=== PATIENT | male | born 1930 | race Caucasian/White ===

== ENCOUNTER 2017-01-15 18:58 | Inpatient (IN) | payer MEDICARE, BC ==
[~2017-01-15] VITALS: Ht 175.3 cm; Wt 80.0 kg
--- NOTE | 2017-01-15 19:00 | NUR ---
PATIENT TO ROOM 10 VIA EMS STRETCHER. UNDRESSED INTO A GOWN. PLACED ON MONITOR. TRIAGE COMPLETED AT BEDSIDE. PATIENT PLACED SUPINE FOR LOW BP. IVF INFUSING FROM EMS.
[2017-01-15] MEDS ORDERED: VITAMIN B-12500 MCG PO (19:29)
[2017-01-15] MEDS ORDERED: PANTOPRAZOLE SO40 MG PO (19:30)
[2017-01-15] MEDS ORDERED: RED YEAST RICE300 MG PO (19:30)
[2017-01-15] MEDS ORDERED: PRESERVISION PO (19:30)
[2017-01-15] MEDS ORDERED: LISINOP/HCTZ1 TA2 PO (19:31)
[2017-01-15] MEDS ORDERED: PRAVASTATIN SOD40 MG PO (19:31)
[2017-01-15 19:35] LABS: HEMOGLOBIN 10.7 g/dl (14.0-18.0); IMMATURE GRANULOCYTES 0.7 % (0.0-1.0); MEAN CELL VOLUME 79.3 fL CALC (80.0-100.0); MEAN CORPUSCULAR HGB 25.7 pG CALC (26.0-32.0); MEAN CORPUSCULAR HGB CONC 32.4 g/L CALC (32.0-36.0); NEUT# 10.35 thou/uL (1.82-7.42); RED BLOOD COUNT 4.16 mill/uL (4.70-6.10); RED CELL DISTRI WIDTH 17.2 % (11.5-15.5)
[2017-01-15] MEDS ORDERED: JANUVIA25 MG PO (19:49)
--- NOTE | 2017-01-15 19:50 | NUR ---
SECOND LITER IVF HUNG. WILL CONTINUE TO MONITOR BLOOD PRESSURE.
[2017-01-15 19:53] LABS: INTERNATIONAL NORMALIZED RATIO 1.2 RATIO (0.7-1.3); PROTHROMBIN TIME 12.7 SECONDS (9.0-12.5)
[2017-01-15 20:01] LABS: ALBUMIN 3.6 g/dL (3.2-5.0); ALKALINE PHOSPHATASE 271 u/l (38-126); ANION GAP 18 (6-22 (CALC)); BILIRUBIN, TOTAL 0.5 mg/dL (0.0-1.4); BUN 71 mg/dL (8-23); BUN/CREATININE RATIO 27 (12-20 (CALC)); CARBON DIOXIDE 26 mmol/l (22-30); CHLORIDE 98 mmol/l (95-108); CREATININE 2.7 mg/dL (0.7-1.3); GFR 23 ML/MIN (>=60 (CALC)); GFR FOR AFR.AMER. 27 ML/MIN (>=60 (CALC)); GLUCOSE 149 mg/dL (82-115); POTASSIUM 3.5 mmol/l (3.5-5.1); SGOT/AST 49 u/l (19-48); SGPT/ALT 55 u/l (11-66); SODIUM 138 mmol/l (137-146); TOTAL PROTEIN 6.6 g/dL (6.3-8.2)
[2017-01-15 20:03] LABS: CALCIUM 13.4 mg/dL (8.4-10.2)
--- NOTE | 2017-01-15 20:05 | NUR ---
VISITORS ARRIVE AT BEDSIDE.
[2017-01-15 20:11] LABS: MYOGLOBIN 286 ng/mL (0 - 121)
--- NOTE | 2017-01-15 20:25 | NUR ---
THIRD LITER IVF HUNG. PATIENT GIVEN URINAL AND ENCOURAGED TO VOID FOR URINE SAMPLE.
--- NOTE | 2017-01-15 21:25 | NUR ---
PATIENT TO RADIOLOGY VIA STRETCHER.
--- NOTE | 2017-01-15 22:00 | NUR ---
PATIENT RETURNS TO DEPARTMENT. AWAITING RESULTS AND PLAN OF CARE. BP HAS IMPROVED AFTER ALL IVF.
[2017-01-15 22:26] LABS: URINE BILIRUBIN - DIPSTICK NEGATIVE (NEGATIVE); URINE BLOOD DIPSTICK NEGATIVE (NEGATIVE); URINE CLARITY CLEAR; URINE COLOR YELLOW; URINE GLUCOSE - DIPSTICK NEGATIVE (NEGATIVE); URINE KETONE TRACE mg/dL (NEGATIVE); URINE LEUK ESTERASE NEGATIVE (NEGATIVE); URINE NITRITE - DIPSTICK NEGATIVE (Negative); URINE PH 5.5 (4.5-8.0); URINE PROTEIN - DIPSTICK NEGATIVE (NEG-TRACE); URINE UROBILINOGEN - DIPSTICK 0.2 E.U./dL (0.2)
--- NOTE | 2017-01-15 23:00 | NUR ---
PATIENT RESTING QUIETLY ON STRETCHER. DENIES ANY COMPLAINTS AT PRESENT TIME. CONTINUE AWAITING PLAN OF CARE.
[2017-01-16] VITALS (26 sets, daily range): BP systolic 81–114; BP diastolic 46–72
--- NOTE | 2017-01-16 | NUR ---
PATIENT AWARE OF PLANS TO ADMIT. VISITORS ARE GOING HOME. AWAITING ORDERS AND ROOM ASSIGNMENT.
--- NOTE | 2017-01-16 00:40 | NUR ---
REPORT GIVEN TO TRAY. PATIENT READIED FOR TRANSPORT TO FLOOR.
--- NOTE | 2017-01-16 01:15 | NUR ---
male pt received to ICU bed 3 via stretcher accompanied by Giuseppe Barreto RN in stable condition; ambulatory to scale then bed with weak gait; admission assessment completed at this time; pt c/c of dizziness/ weakness/ poor appetite x 2 weeks; a&o X3; denies pain; no n/v/diaphoresis noted; resp even and unlabored; lungs clear; o2 per nc at 2L; skin color wnl; hr reg; weak pedal pulses; no edema noted; sr with pvc on monitor; bilat knee [place] hose placed; abd soft with bs present; no bm noted per short story writer; no urine to inspect at this time; pt denies urinary issues; urinal placed at bedside; #20 to lac flushed and patent; fluids to begin as per orders; plan of care/ ivf explained; pt oriented to bed and call light system; will continue to monitor closely
--- NOTE | 2017-01-16 02:00 | NUR ---
calling out for nurse; assist to side of bed to urinate; slow stream; able to void 100cc clear yellow urine; will continue to monitor
--- NOTE | 2017-01-16 04:05 | NUR ---
awake; assisted to side of bed; voiding/slow stream noted; sr/pvc on monitor; iv patent; no redness or edema noted at site; pt offers no complaints; call light within reach; will continue to monitor
--- NOTE | 2017-01-16 05:09 | NUR ---
assist to bsc to urinate; able to void 175cc; pt admits to not emptying bladder completely; no bladder distention noted; pt denies any bladder discomfort; mod urinary incont noted; pericare/gown change; will continue to monitor
--- NOTE | 2017-01-16 05:40 | NUR ---
resting with eyes closed; no distress noted; iv patent; no redness or edema noted at site; sr/pvc on monitor; o2 per nc; bed in lowest position; call light within reach
--- NOTE | 2017-01-16 06:45 | NUR ---
REPORT RECEIVED FROM ERNESTINA PICHARDO. PT UTILITY TECHNICIAN LIGHT WITH REQUEST TO USE RESTROOM. SAFELY ASSISTED TO BSC, LINENS CHANGED R/T INCONTINENCE. CALL LIGHT WITHIN REACH, INSTRUCTED PT TO CALL FOR ASSISTANCE, BEFORE GETTING BACK INTO BED AFTER FINISHED WITH BSC. PT STATES UNDERSTANDING WILL CONTINUE TO MONITOR.
--- NOTE | 2017-01-16 08:30 | NUR ---
PT OOB AND USING BSC. PT HAD SOFT BM AT THIS TIME. PERINEAL CARE PROVIDED AT THIS TIME, REDDENED AREA TO LEFT BUTTOCKS OBSERVED. PICTURE OBTAINED AND SPOT MEASURED. WILL NOTIFY .
[2017-01-16 09:12] LABS: ALBUMIN 2.9 g/dL (3.2-5.0); BILIRUBIN, TOTAL 1.5 mg/dL (0.0-1.4); CALCIUM 12.3 mg/dL (8.4-10.2); CREATININE 1.9 mg/dL (0.7-1.3); POTASSIUM 3.3 mmol/l (3.5-5.1); TOTAL PROTEIN 5.5 g/dL (6.3-8.2)
--- NOTE | 2017-01-16 12:00 | NUR ---
PT ASSISTED FROM BS CHAIR TO BSC, AND THEN SAFELY ASSISTED BACK TO BED. ONCE IN BED, CODE STATUS EVALUATED, IN THE RESPECT OF WHAT TO DO THIS ADMISSION IF PATIENT FOUND WITHOUT A PULSE OR NOT BREATHING. PT STATES "WELL OF RIGHT NOW, THIS ADMISSION, I WANT EVERYTHING DONE FOR ME, I WANT TO START AGGRESSIVE TREATMENT WHEN I FINALLY GET HOME TO [place]." PT DISPOSITION IS PLEASANT, PT IS FULLY ALERT AND ORIENTATED. WILL NOTIFY MD IF ANY FURTHER CHANGES OCCUR.
--- NOTE | 2017-01-16 14:00 | NUR ---
PT OOB TO BSC FOR ADDITIONAl BM. ASSISTED SAFELY TO BED, CALL LIGHT WITHIN REACH, WILL CONTINUE TO MONITOR.
--- NOTE | 2017-01-16 15:18 | NUR ---
NOTIFIED OF PT'S CONSECUTIVE LOW BP. 500CC FLUID BOLUS ORDERED. PT AND FAMILY INFORMED OF ADJUSTMENT TO PLAN OF CARE, PT STATES UNDERSTANDING. PT ASYMPTOMATIC AT THIS TIME. WILL CONTINUE TO MONITOR.
--- NOTE | 2017-01-16 17:18 | NUR ---
PT BP REMAINS UNDER 100 SBP. ASYMPTOMATIC, UP TO THE CHAIR, FOR DINNER. FAMILY AT WILL CONTINUE TO MONITOR.
--- NOTE | 2017-01-16 19:20 | NUR ---
pt resting in bed with eyes closed; easily aroused; offers no complaints; assessment completed at this time; pt a&o X3; denies pain; comtinues with complaints of weakness/ deny dizziness at present; no n/v noted; resp even and unlabored; lungs clear with faint wheeze in post lobes; skin color wnl; o2 per nc at 2L; hr reg; weak pedal pulses; no edema noted; bilat knee [place] hose intact; sr-sb with occ pac/pvc on monitor; abd soft with bs present; pt admits to several bm today; no urine to inspect at this time; urinal at bedside; #20 ems site patent to lac with ns infusing at 500cc/hr; rate changed as per orders; no redness or edema noted at site; firm purple area noted to left buttock/closed/no drainage; plan of care/ ivf explained; call light within reach; will continue to monitor
--- NOTE | 2017-01-16 20:03 | NUR ---
resting on left side with eyes closed; no distress noted; easily arousable; asymptomatic in regards to hypotension; sr/pvc on monitor; iv patent; call light within reach; will continue to monitor
--- NOTE | 2017-01-16 21:05 | NUR ---
awake; #20 started in rw x1 attempt; flushed and patent; iv fluids resumed; #20 ems site removed from lac with catheter tip intact; pt assisted to bsc for bm; sr/sb on monitor with pvc; no distress noted; pt offers no complaints; deny dizziness; o2 per nc; call light within reach; will continue to monitor
--- NOTE | 2017-01-16 21:25 | NUR ---
accucheck 140; hs snack provided; will continue to monitor
--- NOTE | 2017-01-16 21:56 | NUR ---
resting with eyes closed; no distress noted; iv patent; no redness or edema noted at site; sb/pvc on monitor; o2 per nc; call light within reach; will continue to monitor
--- NOTE | 2017-01-16 23:59 | NUR ---
awake; assisted to bsc; no distress noted; iv patent; no redness or edema noted at site; sr/pvc on monitor; o2 per nc; pt offers no complaints; call light within reach; will continue to monitor
[2017-01-17] VITALS (9 sets, daily range): BP systolic 86–127; BP diastolic 47–77
--- NOTE | 2017-01-17 01:45 | NUR ---
awake; assist to use urinal; generalized weakness; deny dizziness; pt states he feels a little stronger; o2 per nc; sr/sb with pvc on monitor; voiding clear dark yellow urine; sob noted with exertion; iv patent; no redness or edema noted at site; call light within reach; will continue to monitor
--- NOTE | 2017-01-17 04:02 | NUR ---
pt resting with eyes closed; no distress noted; resp even and unlabored; iv patent; no redness or edema noted at site; sr-sb with pvc on monitor; o2 per nc; call light within reach; will continue to monitor
[2017-01-17 04:41] LABS: HEMATOCRIT 29.6 % (39.0-50.0); HEMOGLOBIN 9.2 g/dl (14.0-18.0); IMMATURE GRANULOCYTES 0.6 % (0.0-1.0); MEAN CELL VOLUME 80.9 fL CALC (80.0-100.0); MEAN CORPUSCULAR HGB 25.1 pG CALC (26.0-32.0); MEAN CORPUSCULAR HGB CONC 31.1 g/L CALC (32.0-36.0); NEUT# 6.56 thou/uL (1.82-7.42); RED BLOOD COUNT 3.66 mill/uL (4.70-6.10); RED CELL DISTRI WIDTH 17.5 % (11.5-15.5)
[2017-01-17 05:01] LABS: ANION GAP 12 (6-22 (CALC)); BUN 41 mg/dL (8-23); BUN/CREATININE RATIO 33 (12-20 (CALC)); CALCIUM 11.4 mg/dL (8.4-10.2); CARBON DIOXIDE 27 mmol/l (22-30); CHLORIDE 106 mmol/l (95-108); CREATININE 1.2 mg/dL (0.7-1.3); GFR 58 ML/MIN (>=60 (CALC)); GFR FOR AFR.AMER. > 60 ML/MIN (>=60 (CALC)); GLUCOSE 171 mg/dL (82-115); SODIUM 142 mmol/l (137-146)
--- NOTE | 2017-01-17 05:51 | NUR ---
pt resting in bed with eyes closed; no distress noted; iv patent; no redness or edema noted at site; sr/pvc on monitor; bed in lowest position; call light within reach
--- NOTE | 2017-01-17 07:25 | NUR ---
PT ALERT AND ORIENTED SITTING UP IN RECLINER AT BEDSIDE, AM ASSESSMENT COMPLETED, SEE INTERVENTIONS. SKIN WARM AND DRY WITH SMALL AREA NOTED TO LEFT BUTTOCK, PT REFERS TO IT A "FISTULA" NO OPENING AND NO DRAINAGE NOTED, OTHERWISE SKIN INTACT WITH NO BREAKDOWN NOTED, ABD SOFT BS ACTIVE PT COMPLAINS OF SOME NAUSEA WITH PO INTAKE, DENIES VOMITING BUT STATES FEELING "LIKE TH FOOD JUST DOESN'T WANNA GO DOWN" DENIES TROUBLE SWALLOWING, USES URINAL WITH INTERMITTENT BOUTS OF INCONTINENCE, ASSISTNACE PROVIDED PRN, CALL WRIGHT WITHIN REACH, SAFETY MEASURES REINFORCED, WILL CONTINUE TO MONITOR.
--- NOTE | 2017-01-17 08:38 | NUR ---
PT BACK IN BED AT THIS TIME, RESTING WITH NO COMPLAINTS OFFERED, CALL WRIGHT WITHIN REACH, WILL CONTINUE TO MONITOR.
--- NOTE | 2017-01-17 10:29 | NUR ---
SPOKE WITH PT REGARDING DNR STATUS PT RESPONDS APPROPRIATELY INDICATING UNDERSTADNING OF DNR STATUS AND MEANING, PT SIGNED DNR FORM AND PLACED ON CHART ALSO INSTRUCTED PT TO MAKE SURE HE TAKES ORIGINAL WITH HIM UPON DISCHARGE, PT VERBALIZES UNDERSTANDING.
--- NOTE | 2017-01-17 11:33 | NUR ---
FAMILY AT BEDSIDE OFFERS NO NEW COMPLAINTS, PT ALTERNATES BETWEEN SITTING UP IN RECLINER AND LYING DOWN ON BED, FAMILY INTERMITTENLY AT BEDSIDE, WILL CONTINUE TO MONITOR.
--- NOTE | 2017-01-17 12:06 | NUR ---
SPOKE WIHT FAMILY MEMBERS AT PT REQUEST REGARDING PLAN OF CARE, PT CURRENLTY SITTING UP IN RECLINER AT BEDSIDE, O2 REMAINS ON AT 2L VIA NC, WITH NO DISTRESS OR SOB NOTED, WILL CONTINUE TO MONITOR.
--- NOTE | 2017-01-17 14:11 | NUR ---
CASE MGMT IN TO SPEAK WITH PT AND FAMILY REGARDING D/C.
--- NOTE | 2017-01-17 15:13 | NUR ---
PT OOB TO BSC AND BACK TO BED WITH MIN ASSIST VOIDS SMALL AMOUNTS URINE FREQUENTLY, ALL MONITORING EQUIPMETN REMOVED PT NOW MED SURG OVERFLOW NO TELE, CALL WRIGHT WITHIN REACH, WILL CONTINUE TO MONITOR.
--- NOTE | 2017-01-17 15:27 | NUR ---
PT OOB OT RECLINER AT [facility] WITH MIN ASSIST, WILL CONTINUE TO MONITOR
--- NOTE | 2017-01-17 17:30 | NUR ---
PT INCONTINENT IN BED SMALL AMOUNT ENTIRE BED LINEN CHANGE PROVIDED AND UP TO BSC WITH MIN ASSIST, BACK TO BED AFTER USING BSC AND REPOSITIONED FOR COMFORT, DAUGHTER CURRENTLY AST BEDSIDE AND SET UP ASSIST PROVIDED FOR PM MEAL.
--- NOTE | 2017-01-17 18:14 | NUR ---
PT RESTING IN BED, VISITORS AT BEDSIDE, OFFERS NO NEW COMPLAINTS, CALL KYLE BORGES, TOLERATED DIET WITHOUT INCIDENT.
--- NOTE | 2017-01-17 19:00 | NUR ---
REPORT FROM ERNESTINA EVERETT. ASSUMED PT. CARE.
--- NOTE | 2017-01-17 20:32 | NUR ---
ASSISTED PT. TO STAND AT BEDSIDE TO USE URINAL. APPROX 100 CC OF CONCENTRATED URINE OUT AT THIS TIME. C/O "SOUR STOMACH" AT THIS TIME. MD MADE AWARE AND WILL MEDICATE PER PHYSICIAN ORDERS.
--- NOTE | 2017-01-17 21:00 | NUR ---
REPORT TO RENETTA AVILEZ.
--- NOTE | 2017-01-17 21:30 | NUR ---
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
--- NOTE | 2017-01-18 01:50 | NUR ---
PT APPEARS TO BE SLEEPING AT THIS TIME;NO S/S OF DISTRESS NOTED;RESPIRATIONS EVEN AND UNLABORED;URINAL AT BEDSIDE;FALL PRECAUTIONS IN PLACE;BED IN LOWEST POSITION WITH CALL LIGHT IN REACH;WILL CONTINUE TO MONITOR
[2017-01-18 04:11] VITALS: BP 125/76
--- NOTE | 2017-01-18 04:40 | NUR ---
PT RESTING IN SEMI FOWLERS POSITION;PT AMBULATED TO BATHROOM WITH WEAK GAIT AND 1 PERSON ASSIST;PT DENIES ANY PAIN OR DISCOMFORTS;IV SITE TO RT FOREARM INFUSING WELL,SECURED WITH COBAN;02 ON @ 2 LITERS VIA NC;SAFETY PRECAUTIONS REINFORCED;PT DENIES ANY OTHER NEEDS AT THIS TIME;BED IN LOWEST POSITION WITH CALL LIGHT IN REACH;WILL CONTINUE TO MONITOR
[2017-01-18 05:25] LABS: HEMATOCRIT 29.8 % (39.0-50.0); HEMOGLOBIN 9.6 g/dl (14.0-18.0); IMMATURE GRANULOCYTES 1.2 % (0.0-1.0); MEAN CELL VOLUME 80.8 fL CALC (80.0-100.0); MEAN CORPUSCULAR HGB CONC 32.2 g/L CALC (32.0-36.0); NEUT# 6.89 thou/uL (1.82-7.42); RED BLOOD COUNT 3.69 mill/uL (4.70-6.10); RED CELL DISTRI WIDTH 17.8 % (11.5-15.5)
[2017-01-18 05:43] LABS: ANION GAP 11 (6-22 (CALC)); BUN 30 mg/dL (8-23); BUN/CREATININE RATIO 30 (12-20 (CALC)); CALCIUM 11.4 mg/dL (8.4-10.2); CARBON DIOXIDE 27 mmol/l (22-30); CHLORIDE 106 mmol/l (95-108); GFR > 60 ML/MIN (>=60 (CALC)); GFR FOR AFR.AMER. > 60 ML/MIN (>=60 (CALC)); GLUCOSE 141 mg/dL (82-115); POTASSIUM 3.2 mmol/l (3.5-5.1); SODIUM 142 mmol/l (137-146)
--- NOTE | 2017-01-18 07:20 | NUR ---
REPORT RECIEVED FROM RENETTA AVILEZ; PT SITTING UP IN CHAIR AT BEDSIDE; O2 NC IN PLACE; PT DENIES ANY NEEDS AT THIS TIME; PORFIRIO LERMA AT BEDSIDE TO ASSIST; CALL LIGHT WITHIN REACH; WILL CONTINUE TO MONITOR
[2017-01-18 07:48] VITALS: BP 155/91
--- NOTE | 2017-01-18 11:13 | NUR ---
PT RESTING IN BED; NO S/S OF DISTRESS NOTED; FAMILY AT BEDSIDE FOR ASSISTANCE; IVF INFUSING AT PRESCRIBED RATE; PT DENIES ANY NEEDS AT THIS TIME; CALL LIGHT WITHIN REACH; WILL CONTINUE TO MONITOR
[2017-01-18 14:59] VITALS: BP 134/78
--- NOTE | 2017-01-18 16:21 | NUR ---
PT SITTING UP IN CHAIR AT BEDSIDE; NO S/S OF DISTRESS NOTED; IVF INFUSING AT PRESCRIBED RATE; PT DENIES ANY PAIN OR DISCOMFORT; CALL LIGHT WITHIN REACH; WILL CONTINUE TO MONITOR
--- NOTE | 2017-01-18 19:27 | NUR ---
BEDSIDE REPORT RECEIVED FROM ERNESTINA GEORGES. PT ASLEEP AT THIS TIME. NO SIGNS OF DISCOMFORT. RESPIRATIONS EVEN AND UNLABORED. NORMAL SALINE INFUSING ADEQUATELY. SAFETY MEASURES IN PLACE. CALL LIGHT WITHIN REACH.
[2017-01-18 19:33] VITALS: BP 147/88
--- NOTE | 2017-01-19 | NUR ---
PT HAS USED CALL LIGHT FREQUENTLY FOR USE OF URINAL OR BSC. INCONTINENT AT TIMES WITH BED/GOWN CHANGES. DENIES PAIN. RESPIRATIONS EVEN AND UNLABORED. REMOVES O2 AT TIMES. IV SITE TO RIGHT FORARM APPEARS HEALTHY. INFUSING IV FLUIDS APPROPRIATELY. SAFETY MEASURES IN PLACE. CALL LIGHT IN REACH.
--- NOTE | 2017-01-19 04:27 | NUR ---
PT UP TO BSC SEVERAL TIMES. USUALLY INCONTINENT OF BLADDER. UP TO CHAIR FOR A SHORT TIME. DENIES PAIN. RESPIRATIONS EVEN AND UNLABORED. SAFETY MEASURES IN PLACE. CALL LIGHT WITHIN REACH.
[2017-01-19 04:44] VITALS: BP 147/91
[2017-01-19 05:06] LABS: HEMATOCRIT 30.5 % (39.0-50.0); HEMOGLOBIN 9.8 g/dl (14.0-18.0); IMMATURE GRANULOCYTES 1.4 % (0.0-1.0); MEAN CELL VOLUME 80.3 fL CALC (80.0-100.0); MEAN CORPUSCULAR HGB 25.8 pG CALC (26.0-32.0); MEAN CORPUSCULAR HGB CONC 32.1 g/L CALC (32.0-36.0); NEUT# 8.51 thou/uL (1.82-7.42); RED BLOOD COUNT 3.8 mill/uL (4.70-6.10); RED CELL DISTRI WIDTH 18.2 % (11.5-15.5)
[2017-01-19 05:20] LABS: ANION GAP 11 (6-22 (CALC)); BUN 30 mg/dL (8-23); BUN/CREATININE RATIO 31 (12-20 (CALC)); CALCIUM 11.2 mg/dL (8.4-10.2); CARBON DIOXIDE 27 mmol/l (22-30); CHLORIDE 107 mmol/l (95-108); CREATININE 0.9 mg/dL (0.7-1.3); GFR > 60 ML/MIN (>=60 (CALC)); GFR FOR AFR.AMER. > 60 ML/MIN (>=60 (CALC)); GLUCOSE 176 mg/dL (82-115); POTASSIUM 3.3 mmol/l (3.5-5.1); SODIUM 142 mmol/l (137-146)
--- NOTE | 2017-01-19 07:00 | NUR ---
SHIFT CHANGE REPORT FORM PRATEEK, PT AWAKE ALERT AND ORIENTED SITTING UP IN RECLINER, IVF INFUSING, NO C/O DISCOMFORT AT TIS TIME O2 @ 2L IN PLACE, CALL WRIGHT IN REACH.
[2017-01-19 08:25] VITALS: BP 136/73
--- NOTE | 2017-01-19 09:57 | NUR ---
PATIENT SEEN FOR GAIT AND FUNCTIONAL ACTIVITY. GAIT DONE WITH A ROLLING WALKER AND MOD ASSIST OF ONE. GAIT CHARACTERIZED BY TINY, SLOW STEPS. REQUIRED CUING TO PERFORM TRANSFERS PROPERLY AND SAFELY. TOILET TRANSFERS PRACTICED. HE REQUIRED ASSIST WITH STAND TO SIT BUT COULD GO FROM SIT TO STAND WITH SBA ONLY. HE WAS LEFT COMFORTABLE IN THE CHAIR WITH THE TABLE AND CALL LIGHT IN FRONT OF HIM. HE APPEARED TO TOLERATE TREATMENT WELL.
[2017-01-19] MEDS ORDERED: ZOFRAN ODT4 MG PO (10:51)
[2017-01-19 11:43] VITALS: BP 147/82
--- NOTE | 2017-01-19 15:21 | NUR ---
REPORT CALLED TO [facility] JUST CALLED UNIT READY TO RECEIVE PT FOR TRANSPORT.
--- NOTE | 2017-01-19 15:25 | NUR ---
Discharge instructions given. Patient verbalizes understanding of same. Discharged in stable condition via [facility] with *[facility]. All belongings sent with pt.
== END 2017-01-19 15:30 | DRG 683 ==
LOC: ENPENDDIS → ED 18:58 → ED-I 23:00 → ED 01-16 00:20 → MS2 01-16 00:21 → ICU 01-16 00:21 → MS2 01-17 21:25
PROVIDERS: Emergency Medicine; ADMIT Internal Medicine; ATTEND Internal Medicine
DX: N17.9 Acute kidney failure, unspecified (principal); C79.9 Secondary malignant neoplasm of unspecified site; I95.9 Hypotension, unspecified; E86.0 Dehydration; C25.9 Malignant neoplasm of pancreas, unspecified; E11.9 Type 2 diabetes mellitus without complications; E83.52 Hypercalcemia; D63.0 Anemia in neoplastic disease; I10 Essential (primary) hypertension; K21.9 Gastro-esophageal reflux disease without esophagitis; G89.3 Neoplasm related pain (acute) (chronic); R53.81 Other malaise; F32.9 Major depressive disorder, single episode, unspecified; Z87.891 Personal history of nicotine dependence; Z66 Do not resuscitate